=== PATIENT | male | born 1980 | race Caucasian/White ===

== ENCOUNTER 2022-03-16 12:20 | Emergency (ER) | payer MEDICARE ==
[~2022-03-16] VITALS: Ht 185.4 cm; Wt 114.0 kg
[2022-03-16] MEDS ORDERED: DIPH25CA83 MT (13:58)
[2022-03-16 14:16] VITALS: BP 127/59
== END 2022-03-16 14:17 | disposition home or self-care (01) ==
LOC: ER 12:20
DX: G47.00 Insomnia, unspecified (principal); R51.9 Headache, unspecified; J45.909 Unspecified asthma, uncomplicated
CPT/HCPCS: 99281; 99282